=== PATIENT | male | born 1985 | race Caucasian/White ===

== ENCOUNTER 2022-12-12 05:45 | Emergency (ER) | payer OTHER ==
[~2022-12-12] VITALS: Ht 188 cm; Wt 109.1 kg
[2022-12-12 06:41] VITALS: BP 138/84; PULSE 60; RESP 16; TEMP 97.7; O2SAT 99
[2022-12-12] MEDS ORDERED: IBUP-1456 PO (06:53)
== END 2022-12-12 07:03 | disposition home or self-care (01) ==
LOC: ER 05:45
DX: S62.631A Displaced fracture of distal phalanx of left index finger, initial encounter for closed fracture (principal); Z88.0 Allergy status to penicillin; W23.0XXA Caught, crushed, jammed, or pinched between moving objects, initial encounter; Y93.89 Activity, other specified; Y92.89 Other specified places as the place of occurrence of the external cause; Y99.8 Other external cause status
CPT/HCPCS: 29130; 73140